=== PATIENT | female | born 1995 | race Two or more races ===

== ENCOUNTER 2016-10-30 12:30 | Inpatient (IN) | payer OTHER ==
[2016-10-30] MEDS ORDERED: ELECTROLYTE-148 SOLN 500 ML IV ONE (13:00)
[2016-10-30] MEDS: ELECTROLYTE-148 SOLN 1,000 ML IV SCH ×2 (14:00→18:42)
[2016-10-30 14:04] VITALS: BMI 24.3
[2016-10-30 14:16] LABS: MCHC 33.9 g/dl (32.0-36.0); MEAN CELL VOLUME 88.4 fl (80-96); MEAN PLT VOLUME 8.8 fl (7.5-11.1); NEUTROPHILS 72.9 % (42.8-82.8); PLATELET COUNT 188 K/MM3 (134-434); WHITE BLOOD COUNT 11.4 K/mm3 (4.0-10.0)
[2016-10-30 14:44] LABS: CALCIUM 8.5 mg/dL (8.5-10.1); COCKROFT - GAULT 146.7185; CREATININE 0.6 mg/dL (0.55-1.02)
[2016-10-30 14:47] LABS: INR 0.94 (0.82-1.09); PROTHROMBIN TIME (PATIENT) 10.3 SEC (9.98-11.88)
[2016-10-30 14:50] LABS: ACTIVATED PTT 28.3 SECONDS (26.9-34.4)
[2016-10-30] MEDS ORDERED: TUBERCULIN PPD 5 TU/0.1ML SYRINGE (IN PATIENT USE ONLY) ID ONE (16:30)
[2016-10-30] MEDS ORDERED: CITRIC ACID/SODIUM CITRATE 30 ML UNIT-DOSE CUP PO ONE (18:47)
--- NOTE | 2016-10-30 18:56 | HP ---
Past Medical History - Admission Chief Complaint: IUP @ 36.5 weeks History of Present Illness: 21 yo , @ 36.5 weeks gestation, seen by Perinatologist today and was found to have Vasa Previa. Patient was sent to L&D for delivery. She had no complaints. History Source: Patient Limitations to Obtaining History: No Limitations - Past Medical History ...: 1 ...Para: 0 ...Term: 0 ...: 0 ...Spon : 0 ...Induced : 0 ...Multiple Gestation: 0 ...LMP: 02/11/16 ... Weeks Gestation by Dates: 37.3 ...EDC by Dates: 11/17/16 ...EDC by Sono: 11/22/16 - Past Surgical History Past Surgical History: Yes: None Hx Myomectomy: No Hx Transabdominal Cerclage: No - Smoking History Smoking history: Never smoked Have you smoked in the past 12 months: No - Alcohol/Substance Use Hx Alcohol Use: No History of Substance Use: reports: None - Social History Usual Living Arrangement: Yes: With Spouse History of Recent Travel: No Home Medications - Allergies Allergies/Adverse Reactions: Allergies Allergy/AdvReac Type Severity Reaction Status Date / Time No Known Allergies Allergy Verified 10/30/16 13:52 - Home Medications Home Medications: Ambulatory Orders Pnv95/Ferrous Fumarate/FA [ Vitamin Tablet] 1 each PO DAILY 10/30/16 Family Disease History - Family Disease History Family History: Unremarkable Review of Systems - Review of Systems Constitutional: reports: No Symptoms Eyes: reports: No Symptoms HENT: reports: No Symptoms Neck: reports: No Symptoms Cardiovascular: reports: No Symptoms Respiratory: reports: No Symptoms Gastrointestinal: reports: No Symptoms Genitourinary: reports: No Symptoms Breasts: reports: No Symptoms Reported Musculoskeletal: reports: No Symptoms Integumentary: reports: No Symptoms Neurological: reports: No Symptoms Endocrine: reports: No Symptoms Hematology/Lymphatic: reports: No Symptoms Psychiatric: reports: No Symptoms Pain Intensity: 0 Physical Exam - Maternity Vital Signs: Vital Signs Temperature 97.6 F 10/30/16 18:00 Pulse Rate 72 10/30/16 18:00 Respiratory Rate 20 10/30/16 18:00 Blood Pressure 125/79 10/30/16 18:00 O2 Sat by Pulse Oximetry (%) Constitutional: Yes: Well Nourished Eyes: Yes: Conjunctiva Clear HENT: Yes: Atraumatic Neck: Yes: Supple, Trachea Midline Cardiovascular: Yes: Regular Rate and Rhythm Lungs: Clear to auscultation Breast(s): Yes: WNL - Abdominal Exam/OB Number of Fetuses: Single Presentation: Vertex Contractions: Yes Regularity: Irregular Intensity: Mild - Vaginal Exam/OB Vaginal Bleediing: No Speculum Exam: No - Physical Exam Integumentary: Yes: WNL ...Motor Strength: WNL Psychiatric: Yes: Alert, Oriented - Labs Lab Results: CBC, BMP 10/30/16 13:56 10/30/16 13:56 Problem List - Problems (1) Vasa previa affecting labor and delivery in [place] Code(s): O69.4XX0 - LABOR AND DELIVERY COMPLICATED BY VASA PREVIA, UNSP Assessment/Plan IUP @ 36.5 weeks gestation Vasa Previa Pre op for primary Consent signed Anesthesia to see patient
--- NOTE | 2016-10-30 18:58 | OP ---
Operative Note - Note: Operative Date: 10/30/16 Pre-Operative Diagnosis: with Vasa Previa Operation: Primary Low Transverse Findings: Baby boy in LOT position Post-Operative Diagnosis: Same as Pre-op Surgeon: Joselyn Tompkins Faculty Research Assistant: Nasir Garland Anesthesia: Spinal Specimens Removed: Placenta Estimated Blood Loss (mls): 600
[2016-10-30] MEDS ORDERED: IBUPROFEN 800 MG/8 ML IJ IVPB PRN (19:07)
[2016-10-30] MEDS ORDERED: ONDANSETRON 4 MG/2 ML VIAL IVPUSH PRN (19:08)
[2016-10-30] MEDS ORDERED: METHYLERGONOVINE MALEATE 0.2 MG/1 ML AMP IM PRN (20:11)
--- NOTE | 2016-10-30 20:44 | CONSULT ---
- Maternal History Mother's Age: 20 Status: Mother's Blood Type: AB(+) HBSAG: Negative Date: 05/05/16 RPR: Negative Date: 05/05/16 Group B Strep: Negative GBS Treated in Labor: No HIV: Negative Other: Rubella Immune, PPD and Quantiferon unknown Data - Admission Admission Time: 13:00 Date of Delivery: 10/30/16 Time of Delivery: 19:33 Wks Gestation by Dates: 37.3 Wks Gestation by Sono: 36.5 Infant Gender: Male Type of Delivery: Primary C/S Reason for C Section: palcental location- vasa previa Score @1 Minute: 9 score @ 5 Minutes: 9 - Labs Labs: Baby's Blood Type, Chanda Blood Type AB POSITIVE 10/30/16 13:56 Level 2, History and Physical Shiner History: 36+5wk AGA male infant born via primary for vasa previa. born with cord around the neck x1. Infant born vigorous, cried immediately. Brought to warmer and routine DR care given. APGARs 9/9 at 1/[address] - Shiner Weight: 2.165 kg Length: 43.18 cm Vital Signs: Vital Signs Temperature 36.4 C 10/30/16 18:00 Pulse Rate 72 10/30/16 18:00 Respiratory Rate 20 10/30/16 18:00 Blood Pressure 125/79 10/30/16 18:00 O2 Sat by Pulse Oximetry (%) General Appearance: Yes: No Abnormalities, Full ROM, Spontaneous movements, [place] Skin: Yes: No Abnormalities, Vernix Head: Yes: No Abnormalities Eyes: Yes: No Abnormalities, Clear Ears: Yes: No Abnormalities, Symmetrical Nose: Yes: No Abnormalities, Nares patent Mouth: Yes: No Abnormalities Chest: Yes: No Abnormalities Lungs/Respiratory: Yes: No Abnormalities, Clear, Bilateral good air entry Cardiac: Yes: No Abnormalities, S1, S2 Abdomen: Yes: No Abnormalities, Umb Ves, 2 artery 1 vein Gastrointestinal: Yes: No Abnormalities, Active bowel sounds Genitalia: No Abnormalities Genitalia, Female: Yes: Labia Normal Anus: Yes: No Abnormalities, Patent Extremities: Yes: No Abnormalities, 10 Fingers, 10 Toes Spine: Yes: No Abnormalities Reflexes: Melissa: Present Neuro: Yes: No Abnormalities, Alert, Active Cry: Yes: No Abnormalities, Strong Assessment/Plan 36+5wk male born via primary for vasa previa with nuchal cord x1. Routine care glucose monitoring as per protocol encourage with mother
[2016-10-31 08:15] LABS: BASOPHIL 0.2 % (0-2.0); EOSINOPHIL 0.4 % (0-4.5); MCH 29.7 pg (25.7-33.7); MCHC 33.3 g/dl (32.0-36.0); MEAN CELL VOLUME 89.3 fl (80-96); NEUTROPHILS 82.4 % (42.8-82.8); PLATELET COUNT 160 K/MM3 (134-434); RDW 12.8 % (11.6-15.6); WHITE BLOOD COUNT 15.5 K/mm3 (4.0-10.0)
[2016-10-31] MEDS: SIMETHICONE 80 MG TAB.CHEW (FP) PO PRN ×3 (08:39→21:31)
[2016-10-31] MEDS: D5W-LR W/ 20 UNITS OXYTOCIN 1,000 ML IV SCH ×2 (08:40→21:20)
[2016-10-31] MEDS: FERROUS SO4 325 MG TABLET (FP) PO SCH ×2 (08:46→18:45)
[2016-10-31] MEDS: PRENATAL VITAMINS W/ FOLIC ACID TABLET (FP) PO SCH (09:58)
[2016-10-31] MEDS: IBUPROFEN 600 MG TABLET (FP) PO PRN ×2 (17:04→21:31)
[2016-10-31] MEDS ORDERED: BISACODYL 10 MG SUPP.RECT RC PRN (20:11)
[2016-10-31] MEDS: ELECTROLYTE-148 SOLN 1,000 ML IV SCH (21:20)
[2016-10-31] MEDS: ACETAMINOPHEN 325 MG TABLET (FP) PO PRN (21:31)
[2016-10-31] MEDS: oxyCODONE HCL 5 MG TABLET PO PRN (21:32)
[2016-11-01] MEDS: FERROUS SO4 325 MG TABLET (FP) PO SCH ×2 (07:50→17:21)
[2016-11-01] MEDS: ACETAMINOPHEN 325 MG TABLET (FP) PO PRN ×3 (07:51→18:37)
[2016-11-01] MEDS: oxyCODONE HCL 5 MG TABLET PO PRN ×3 (07:51→18:35)
[2016-11-01] MEDS: SIMETHICONE 80 MG TAB.CHEW (FP) PO PRN ×3 (07:52→18:35)
--- NOTE | 2016-11-01 08:11 | PN ---
Progress Note, Physician Chief Complaint: pod2 complaining of upper back pain she has full motion of her arms - Current Medication List Current Medications: Active Medications Acetaminophen (Tylenol -) 650 mg PO Q4H PRN PRN Reason: FEVER OR PAIN Last Admin: 11/01/16 07:51 Dose: 650 mg Bisacodyl (Dulcolax Suppository -) 10 mg RC PRN PRN PRN Reason: CONSTIPATION Diphtheria/Tetanus/Acell Pertussis (Boostrix -) 0.5 ml IM .ONCE ONE Stop: 11/01/16 10:01 Ferrous Sulfate (Feosol -) 325 mg PO BIDWM [facility] Last Admin: 11/01/16 07:50 Dose: 325 mg Ibuprofen (Motrin -) 600 mg PO Q4H PRN PRN Reason: PAIN Last Admin: 10/31/16 21:31 Dose: 600 mg Methylergonovine Maleate (Methergine Injection -) 0.2 mg IM Q4H PRN PRN Reason: Excessive Bleeding (L&D) Oxycodone HCl (Roxicodone -) 5 mg PO Q4H PRN PRN Reason: PAIN LEVEL 1-5 Last Admin: 11/01/16 07:51 Dose: 5 mg Multivit/Folic Acid/Iron ( Vitamins (Sjr) -) 1 tab PO DAILY [facility] Last Admin: 10/31/16 09:58 Dose: Not Given Simethicone (Mylicon -) 80 mg PO Q4H PRN PRN Reason: GAS Last Admin: 11/01/16 07:52 Dose: 80 mg - Objective Vital Signs: Vital Signs Temperature 98.1 F 10/31/16 22:00 Pulse Rate 67 10/31/16 22:00 Respiratory Rate 18 10/31/16 22:00 Blood Pressure 121/82 10/31/16 22:00 O2 Sat by Pulse Oximetry (%) 99 10/30/16 21:05 Constitutional: Yes: Well Nourished, No Distress, Calm Eyes: Yes: WNL HENT: Yes: WNL, Atraumatic, Normocephalic Neck: Yes: WNL, Supple Cardiovascular: Yes: WNL Respiratory: Yes: WNL Gastrointestinal: Yes: WNL ...Rectal Exam: Yes: Deferred Genitourinary: Yes: WNL Breast(s): Yes: WNL Musculoskeletal: Yes: WNL Extremities: Yes: WNL Edema: No Peripheral Pulses WNL: Yes Peripheral Pulses: Right Radial: 0 Integumentary: Yes: WNL Wound/Incision: Yes: Clean/Dry Neurological: Yes: WNL, Alert, Oriented ...Motor Strength: WNL Psychiatric: Yes: WNL, Alert, Oriented Labs: CBC, BMP 10/31/16 07:40 10/30/16 13:56 INR, PTT INR 0.94 (0.82-1.09) 10/30/16 13:56 Assessment/Plan condition stable on post op day #2 suggest motrin for neck pain prn continue post op care
[2016-11-01] MEDS: PRENATAL VITAMINS W/ FOLIC ACID TABLET (FP) PO SCH (10:09)
[2016-11-01] MEDS ORDERED: DIPHTH,PERTUSS(ACELL),TET 0.5 ML DISP.SYRIN IM ONE (12:00)
[2016-11-02] MEDS: IBUPROFEN 600 MG TABLET (FP) PO PRN ×2 (01:15→22:12)
[2016-11-02] MEDS: oxyCODONE HCL 5 MG TABLET PO PRN ×2 (01:15→17:58)
[2016-11-02] MEDS: FERROUS SO4 325 MG TABLET (FP) PO SCH ×2 (07:52→17:58)
[2016-11-02 09:03] LABS: BASOPHIL 0.5 % (0-2.0); EOSINOPHIL 2.7 % (0-4.5); MCH 30.1 pg (25.7-33.7); MCHC 33.6 g/dl (32.0-36.0); MEAN CELL VOLUME 89.6 fl (80-96); MEAN PLT VOLUME 8.3 fl (7.5-11.1); NEUTROPHILS 74.4 % (42.8-82.8); PLATELET COUNT 175 K/MM3 (134-434); RDW 12.8 % (11.6-15.6)
[2016-11-02] MEDS: PRENATAL VITAMINS W/ FOLIC ACID TABLET (FP) PO SCH (10:16)
--- NOTE | 2016-11-02 10:45 | PN ---
Post Progress Note - Subjective Subjective: 21 yo Para 1 status post primary , seen and evaluated. She's lying in bed and c/o mild incision pain. Post Day: 3 Type of Delivery: Primary C/S Vital Signs: Vital Signs Temperature 98.2 F 11/01/16 22:00 Pulse Rate 71 11/01/16 22:00 Respiratory Rate 18 11/01/16 22:00 Blood Pressure 126/85 11/01/16 22:00 O2 Sat by Pulse Oximetry (%) 99 10/30/16 21:05 Breast Exam: Yes: Soft Uterus: Yes: Fundus Firm Incision: Yes: Other (Sterile strips in place) Lochia: Yes: Rubra Lochia, amount: Small Extremities: Yes: Calves non-tender Perineum: Yes: Intact Activity: Ambulating - Labs Labs: CBC WBC 13.0 K/mm3 (4.0-10.0) H 11/02/16 08:55 RBC 3.48 M/mm3 (3.60-5.2) L 11/02/16 08:55 Hgb 10.5 GM/dL (10.7-15.3) L 11/02/16 08:55 Hct 31.2 % (32.4-45.2) L 11/02/16 08:55 MCV 89.6 fl (80-96) 11/02/16 08:55 MCHC 33.6 g/dl (32.0-36.0) 11/02/16 08:55 RDW 12.8 % (11.6-15.6) 11/02/16 08:55 Plt Count 175 K/MM3 (134-434) 11/02/16 08:55 MPV 8.3 fl (7.5-11.1) 11/02/16 08:55 Neutrophils % 74.4 % (42.8-82.8) 11/02/16 08:55 Lymphocytes % 15.7 % (8-40) D 11/02/16 08:55 Monocytes % 6.7 % (3.8-10.2) 11/02/16 08:55 Eosinophils % 2.7 % (0-4.5) D 11/02/16 08:55 Basophils % 0.5 % (0-2.0) 11/02/16 08:55 Problem List - Problems (1) Vasa previa affecting labor and delivery in [place] Code(s): O69.4XX0 - LABOR AND DELIVERY COMPLICATED BY VASA PREVIA, UNSP (2) Status post primary low transverse section Code(s): Z98.891 - HISTORY OF UTERINE SCAR FROM PREVIOUS SURGERY Assessment/Plan status post primary Stable Continue routine Post op care
--- NOTE | 2016-11-02 10:48 | DS ---
Physical Exam-FINANCIAL INSTITUTION MANAGER Vital Signs: Vital Signs Temperature 98.2 F 11/01/16 22:00 Pulse Rate 71 11/01/16 22:00 Respiratory Rate 18 11/01/16 22:00 Blood Pressure 126/85 11/01/16 22:00 O2 Sat by Pulse Oximetry (%) 99 10/30/16 21:05 Constitutional: Yes: Well Nourished Eyes: Yes: Conjunctiva Clear HENT: Yes: Atraumatic Neck: Yes: Supple, Trachea Midline Cardiovascular: Yes: Regular Rate and Rhythm Respiratory: Yes: Regular, CTA Bilaterally Gastrointestinal: Yes: Normal Bowel Sounds External Genitalia: Yes: Normal Vaginal Exam: Yes: Normal Cervix: Yes: Normal Uterus: Yes: Normal Wound/Incision: Yes: Well Approximated, Steri Strips (in place) Neurological: Yes: Alert, Oriented Psychiatric: Yes: Alert, Oriented Labs: CBC, BMP 11/02/16 08:55 10/30/16 13:56 Delivery - Delivery Type of Anesthesia: Spinal Episiotomy/Laceration: None EBL (cc): 600 Delivery, Single - Stages of Labor Date of Delivery: 10/30/16 Time of Delivery: 19:33 Time Placenta Delivered: 19:44 - Condition of Infant Pediatric Hospitalist/In Service Education Teacher Present: Yes Name: Vero Sears Gender: Male Weight: 4 lb 12.368 oz Position: Left, OT Total Hours ROM (Hrs/Mins): 2m - 1 Minute Total Score: 9 5 Minutes Total Score: 9 - Feeding Plan Initial Plan: Elected not to breastfeed exclusively throughout hospitalization Discharge Summary Reason For Visit: C SECTION Current Active Problems Status post primary low transverse section (Acute) Vasa previa affecting labor and delivery in [place] (Acute) Procedures: Principal: Primary Hospital Course: Routine Post op care Condition: Good - Instructions Diet, Activity, Other Instructions: Regular diet Wound care No driving, no lifting x 4 weeks Call office for one week follow up appointment. Referrals: Joselyn Tompkins MD [Staff Physician] - Disposition: HOME - Home Medications Comprehensive Discharge Medication List: Ambulatory Orders Pnv95/Ferrous Fumarate/FA [ Vitamin Tablet] 1 each PO DAILY 10/30/16
[2016-11-02] MEDS: ACETAMINOPHEN 325 MG TABLET (FP) PO PRN ×2 (17:59→22:12)
[2016-11-02] MEDS: SIMETHICONE 80 MG TAB.CHEW (FP) PO PRN ×2 (18:00→22:11)
[2016-11-03] MEDS: SIMETHICONE 80 MG TAB.CHEW (FP) PO PRN (09:28)
[2016-11-03] MEDS: FERROUS SO4 325 MG TABLET (FP) PO SCH (09:28)
[2016-11-03] MEDS: ACETAMINOPHEN 325 MG TABLET (FP) PO PRN (09:28)
[2016-11-03] MEDS: PRENATAL VITAMINS W/ FOLIC ACID TABLET (FP) PO SCH (09:28)
[2016-11-03] MEDS: IBUPROFEN 600 MG TABLET (FP) PO PRN (09:29)
[2016-11-03 10:34] VITALS: BP 130/80; PULSE 71; TEMP 97.9
--- NOTE | 2016-11-06 13:24 | PATH ---
Surgical Pathology Report Patient Name: SEBASTIÁN SORIANO [facility]. Rec. #: [id number] /Age/Gender: 1995 (Age: 21) / F Account: [id number] Location: [facility] OBS/MATERIAL REQUISITIONER Taken: 10/30/2016 Received: 10/31/2016 Reported: 11/06/2016 Physicians: Joselny Tompkins M.D. Specimen(s) Received PLACENTA Clinical History , 36 weeks + 5 days; placenta-vasa previa Primary c/section Final Diagnosis PLACENTA, DELIVERY: FOCALLY DISRUPTED, SMALL (<400 GM) THIRD TRIMESTER PLACENTA WITH MODERATE PREVILLOUS, PERIVILLOUS, AND PRECHORIONIC FIBRIN DEPOSITION, THREE VESSEL ECCENTRICALLY INSERTED UMBILICAL CORD, REPORTED VASA PREVIA, AND UNREMARKABLE PLACENTAL MEMBRANES. Electronically Signed Sukhi Correia M.D. Gross Description The specimen is received fresh, labeled "placenta" and is a 277 gram, 15.5 x 13.0 x 2.3 cm placenta with attached membranes and umbilical cord. The attached membranes are burrows, translucent with focal opacities and insert marginally. The umbilical cord measures 22 cm in length and averages 1.2 cm in diameter. The cord inserts eccentrically, 2.5 cm. to the nearest margin. No true knots or strictures are identified. Cut surface of the umbilical cord reveals 3 vessels. The surface is hernandez-blue with fibrin deposition and appropriate caliber vessels. The maternal surface is red-brown with focal defects. Sectioning reveals red-brown, spongy parenchyma. No focal lesions are identified. Classification Clerk sections are submitted in three cassettes as follows: 1- membrane rolls and umbilical cord; 2-3- full thickness sections of placenta. 11/05/2016 [facility]/05[facility]2016
== END 2016-11-03 13:40 | disposition home or self-care (01) | DRG 540 ==
LOC: JDEL 12:30 → JLDR 13:00 → J3W 21:45
PROVIDERS: ADMIT Obstetrics & Gynecology; ATTEND Obstetrics & Gynecology
PROC: 10D00Z1 Extraction of Products of Conception, Low, Open Approach (ICD-10-PCS; principal; 2016-10-30)
DX: O69.4XX0 Labor and delivery complicated by vasa previa, not applicable or unspecified (principal); O69.1XX0 Labor and delivery complicated by cord around neck, with compression, not applicable or unspecified; Z3A.36 36 weeks gestation of pregnancy; Z37.0 Single live birth
CPT/HCPCS: 36415; 80048; 85025; 85610; 85730; 86593; 86850; 86900; 86901; 88307-TC; 90715

== ENCOUNTER 2020-02-07 10:49 | Emergency (ER) | payer OTHER ==
[2020-02-07 10:55] VITALS: BP 96/62; PULSE 67; TEMP 98.3; BMI 24.4
--- NOTE | 2020-02-07 11:33 | PDOC ---
History of Present Illness - General Chief Complaint: Bone Injury Stated Complaint: RT FOOT HURT Time Seen by Provider: 02/07/20 11:02 - History of Present Illness Initial Comments: 02/07/20 11:29 24-year-old female with a past medical history of asthma presents for evaluation of right foot pain. Patient describes an inversion injury which occurred this morning. She points to the lateral aspect of the right foot as the area of her discomfort Past History - Medical History Allergies/Adverse Reactions: Allergies Allergy/AdvReac Type Severity Reaction Status Date / Time No Known Allergies Allergy Verified 10/30/16 13:52 Home Medications: Ambulatory Orders Pnv No.95/Ferrous Fum/Folic AC [ Vitamin Tablet] 1 each PO DAILY 10/30/16 Asthma: No Cancer: No Cardiac Disorders: No COPD: No Diabetes: No HTN: No Seizures: No Thyroid Disease: No - Reproductive History Is Patient Now?: No - Immunization History Immunization Up to Date: No - Psycho-Social/Smoking History Smoking History: Never smoked Have you smoked in the past 12 months: No - Substance Abuse Hx (Audit-C & DAST Scrn) How often the patient has a drink containing alcohol: Never Score: In Men: 4 or > Positive; In Women: 3 or > Positive: 0 Screen Result (Pos requires Nsg. Audit-10AR): Negative In the last yr the pt used illegal drug/Rx for NonMed reason: No Score: Yes response is considered Positive: 0 Screen Result (Positive result requires Nsg. DAST-10): Negative Review of Systems - Review of Systems Musculoskeletal: Yes: See HPI *Physical Exam - Vital Signs Last Vital Signs Temp Pulse Resp BP Pulse Ox 98.3 F 67 20 96/62 100 02/07/20 10:53 02/07/20 10:53 02/07/20 10:53 02/07/20 10:53 02/07/20 10:53 - Physical Exam 02/07/20 11:29 Right foot skin color and temperature normal moderate amount of swelling at the lateral aspect of the right foot no gross sensorimotor deficits ankle thigh calf knee and leg are nontender and soft and floppy calf. Neurovascular intact ED Treatment Course - RADIOLOGY Radiology Studies Ordered: Category Date Time Status FOOT-RIGHT [RAD] Stat Radiology 02/07/20 11:07 Completed Medical Decision Making - Medical Decision Making 02/07/20 11:30 X-rays of the right foot shows a avulsion fracture of the styloid of the fifth metatarsal. García wrap postop shoe weight-bear as tolerated with crutches follow-up with orthopedics avoid anti-inflammatories I have reviewed the pathophysiology with the patient. They are in agreement with the treatment plan all questions were answered to their satisfaction. Understanding for follow-up without fail was also conveyed to the patient. Again they are in agreement. Discharge - Discharge Information Problems reviewed: Yes Clinical Impression/Diagnosis: Fracture of fifth metatarsal bone Condition: Stable Disposition: HOME - Admission No - Follow up/Referral Referrals: Joe Topete DO [Staff Physician] - - Patient Discharge Instructions Additional Instructions: Avoid anti-inflammatories such as Advil Motrin Aleve and ibuprofen. Only take Tylenol for pain for now. You may weight-bear as tolerated with crutches. You may take the dressing off for hygiene purposes. Return to the emergency room for further issues and without fail follow-up with orthopedic surgery in 1 to 2 days for further evaluation and treatment options. - Post Discharge Activity
== END 2020-02-07 12:04 | disposition home or self-care (01) ==
LOC: JERFT 10:49
DX: S92.354A Nondisplaced fracture of fifth metatarsal bone, right foot, initial encounter for closed fracture (principal)
CPT/HCPCS: 73630-TC-RT-FY; 99284-25

== ENCOUNTER 2020-11-10 20:24 | Emergency (ER) | payer OTHER ==
[2020-11-10 20:36] VITALS: BP 116/81; PULSE 99; TEMP 98.9; BMI 25.4
== END 2020-11-10 22:36 | disposition home or self-care (01) ==
LOC: JERFT 20:24
DX: S31.41XA Laceration without foreign body of vagina and vulva, initial encounter (principal)
CPT/HCPCS: 84703; 99283-25

== ENCOUNTER 2023-01-29 10:34 | Emergency (ER) | payer SELFPAY ==
[2023-01-29 10:38] VITALS: BP 113/73; PULSE 76; RESP 18; TEMP 98.5; BMI 23.0
[2023-01-29] MEDS ORDERED: DEXAMETHASONE SOD PHOSPHATE 10 MG/1 ML VIAL IVPUSH ONE (11:44)
[2023-01-29] MEDS ORDERED: hydrOXYzine PAMOATE 50 MG CAPSULE (FP) PO ONE (11:44)
[2023-01-29] MEDS ORDERED: diphenhydrAMINE HCL 25 MG CAPSULE (FP) PO ONE (11:44)
[2023-01-29] MEDS ORDERED: DEXAMETHASONE SOD PHOSPHATE 10 MG/1 ML VIAL ONE (11:44)
[2023-01-29] MEDS ORDERED: hydrOXYzine PAMOATE 25 MG CAPSULE (FP) PO ONE (11:50)
== END 2023-01-29 13:22 | disposition home or self-care (01) ==
LOC: JERFT 10:34
PROC: 3E033GC Introduction of Other Therapeutic Substance into Peripheral Vein, Percutaneous Approach (ICD-10-PCS; principal; 2023-01-29)
DX: S90.561A Insect bite (nonvenomous), right ankle, initial encounter (principal); L23.89 Allergic contact dermatitis due to other agents; L29.9 Pruritus, unspecified; R22.41 Localized swelling, mass and lump, right lower limb; W57.XXXA Bitten or stung by nonvenomous insect and other nonvenomous arthropods, initial encounter
CPT/HCPCS: 73610-TC-RT-FY; 73630-TC-RT-FY; 99284-25; J1100

== ENCOUNTER 2023-05-25 13:22 | Emergency (ER) | payer SELFPAY ==
[2023-05-25 13:39] VITALS: RESP 18; BMI 24.4
[2023-05-25] MEDS ORDERED: SODIUM CHLORIDE 0.9% 1000 ML INFUS.BAG IV ONE ×2 (15:14→16:55)
[2023-05-25 15:32] LABS: BASO % 1.1 % (0-2.0); EOS % 0.7 % (0-4.5); HEMATOCRIT 38.7 % (32.4-45.2); HEMOGLOBIN 12.9 GM/dL (10.7-15.3); LYMPH % 39.7 % (8-40); MCH 29.2 pg (25.7-33.7); MCHC 33.2 g/dl (32.0-36.0); MEAN CELL VOLUME 87.7 fl (80-96); MONO % 16.6 % (3.8-10.2); NEUT % 41.9 % (42.8-82.8); PLATELET COUNT 207 10^3/uL (134-434); RBC 4.41 M/mm3 (3.60-5.2); RDW 12.9 % (11.6-15.6)
[2023-05-25 17:26] VITALS: BP 121/88; PULSE 77; TEMP 97.8
[2023-05-25 17:44] LABS: POTASSIUM 4.2 mmol/L (3.5-5.1)
[2023-05-25 17:46] LABS: CALCIUM 8.6 mg/dL (8.5-10.1)
[2023-05-25 17:47] LABS: ALBUMIN 3.8 g/dl (3.4-5.0); BLOOD UREA NITROGEN 16.8 mg/dL (7-18)
[2023-05-25 17:50] LABS: CREATININE 0.9 mg/dL (0.55-1.3)
[2023-05-25 17:51] LABS: BILIRUBIN,TOTAL 0.2 mg/dL (0.2-1)
[2023-05-25 17:52] LABS: TOT PROT 7.8 g/dl (6.4-8.2)
== END 2023-05-25 18:01 | disposition home or self-care (01) ==
LOC: JERFT 13:22
DX: R09.81 Nasal congestion (principal); R09.82 Postnasal drip; G44.209 Tension-type headache, unspecified, not intractable; R50.9 Fever, unspecified; J10.1 Influenza due to other identified influenza virus with other respiratory manifestations; E86.0 Dehydration; Z20.822 Contact with and (suspected) exposure to COVID-19
CPT/HCPCS: 0241U-QW; 36415; 80053; 85025; 87651; 99283-25

== ENCOUNTER 2023-05-26 08:48 | Emergency (ER) | payer SELFPAY ==
[2023-05-26 09:00] VITALS: BP 102/67; PULSE 98; RESP 20; TEMP 99.8; BMI 18.3
[2023-05-26] MEDS ORDERED: KETOROLAC TROMETHAMINE 30 MG/1 ML VIAL IM ONE (10:02)
[2023-05-26] MEDS ORDERED: LIDOCAINE 4% PATCH TP ONE ×2 (10:02→10:17)
[2023-05-26] MEDS ORDERED: KETOROLAC TROMETHAMINE 30 MG/1 ML VIAL ONE (10:17)
[2023-05-26] MEDS ORDERED: LIDOCAINE PATCH REMOVAL MC SCH (22:00)
== END 2023-05-26 12:00 | disposition home or self-care (01) ==
LOC: JERFT 08:48
PROC: 3E0233Z Introduction of Anti-inflammatory into Muscle, Percutaneous Approach (ICD-10-PCS; principal; 2023-05-26)
DX: M25.512 Pain in left shoulder (principal)
CPT/HCPCS: 73030-TC-LT-FY; 99284-25

== ENCOUNTER 2023-12-20 05:57 | Emergency (ER) | payer SELFPAY ==
[2023-12-20 06:08] VITALS: BP 94/68; PULSE 74; RESP 17; TEMP 97.9; BMI 24.7
[2023-12-20] MEDS ORDERED: MAG HYDROX/AL HYDROX/SIMETH 30 ML UNIT-DOSE CUP ONE (06:14)
[2023-12-20] MEDS ORDERED: ONDANSETRON *ODT* 4 MG TABLET ONE (06:15)
[2023-12-20] MEDS ORDERED: FAMOTIDINE 20 MG TABLET ONE (06:15)
[2023-12-20] MEDS: FAMOTIDINE 10 MG TABLET PO ONE (06:16)
[2023-12-20] MEDS: ONDANSETRON 4 MG TABLET PO ONE (06:17)
[2023-12-20] MEDS: MAG HYDROX/AL HYDROX/SIMETH 30 ML UNIT-DOSE CUP PO ONE (06:17)
== END 2023-12-20 08:07 | disposition home or self-care (01) ==
LOC: JER 05:57
DX: R10.13 Epigastric pain (principal); R11.0 Nausea
CPT/HCPCS: 99283-25

== ENCOUNTER 2024-03-28 14:38 | Emergency (ER) | payer SELFPAY ==
[2024-03-28] MEDS ORDERED: ACETAMINOPHEN 325 MG TABLET (FP) PO ONE (15:34)
[2024-03-28 15:41] VITALS: BP 133/67; PULSE 88; RESP 20; TEMP 98.8; BMI 21.6
== END 2024-03-28 15:51 | disposition home or self-care (01) ==
LOC: FER 14:38
DX: R50.9 Fever, unspecified (principal); B34.9 Viral infection, unspecified; R05.9 Cough, unspecified; R06.02 Shortness of breath; M79.10 Myalgia, unspecified site; R09.81 Nasal congestion
CPT/HCPCS: 99283-25